=== PATIENT | female | born 1995 | race Hispanic/Latino ===

== ENCOUNTER → 2023-05-20 17:13 | Outpatient (REF) | payer OTHER, SELFPAY | LOC: PNTC 17:13 | PROVIDERS: ATTENDING PHYSICIAN Obstetrics & Gynecology | DX: Q07.00 Arnold-Chiari syndrome without spina bifida or hydrocephalus (principal); O99.210 Obesity complicating pregnancy, unspecified trimester; O43.199 Other malformation of placenta, unspecified trimester | CPT/HCPCS: 76816 ==

== ENCOUNTER → 2023-06-03 11:38 | Outpatient (REF) | payer OTHER, SELFPAY | LOC: PNTC 11:38 | PROVIDERS: ATTENDING PHYSICIAN Obstetrics & Gynecology | DX: O36.0131 Maternal care for anti-D [Rh] antibodies, third trimester, fetus 1 (principal) | CPT/HCPCS: 36415; 86850; 86900; 86901; J2790 ==

== ENCOUNTER → 2023-06-17 07:01 | Outpatient (REF) | payer OTHER, SELFPAY | LOC: PNTC 07:01 | PROVIDERS: ATTENDING PHYSICIAN Obstetrics & Gynecology | DX: O99.210 Obesity complicating pregnancy, unspecified trimester (principal); O34.00 Maternal care for unspecified congenital malformation of uterus, unspecified trimester | CPT/HCPCS: 76816 ==

== ENCOUNTER 2023-06-24 15:12 | Observation (INO) | payer OTHER, SELFPAY ==
[2023-06-24 15:43] LABS: Hematocrit 37.9 % (37.0-47.0); Hemoglobin 12.8 g/dL (12.0-16.0); Mean Corp Hgb Conc. 33.8 g/dL (33.0-37.0); Mean Corpuscular Hgb 30.7 pg (27.0-31.0); Mean Corpuscular Volume 90.9 fL (81.0-99.0); Mean Platelet Volume 9.5 fL (7.4-10.4); Platelet Count 288 10^3/uL (130-400); Red Blood Cell Count 4.17 10^6/uL (4.20-5.40); Red Cell Dist. Width 13.8 % (11.5-14.5); White Blood Cell Count 9.1 10^3/uL (4.8-10.8)
[2023-06-24 16:01] LABS: ALT (SGPT) 19 U/L (0-35); AST (SGOT) 23 U/L (14-36); Albumin 3.5 g/dl (3.5-5.0); Alkaline Phosphatase 77 U/L (38-126); Blood Urea Nitrogen 5 mg/dl (7-17); Carbon Dioxide 21 mmol/L (22-30); Chloride 104 mmol/L (98-107); Glucose 100 mg/dl (70-99); Potassium 3.7 mmol/L (3.5-5.1); Sodium 133 mmol/L (135-145); Total Bilirubin 0.2 mg/dl (0.2-1.3); Total Protein 6.7 g/dl (6.3-8.2); eGFR > 60.00
[2023-06-24 16:12] LABS: Urine Albumin Negative (Neg - Trace); Urine Bilirubin Negative (Negative); Urine Character Clear (Clear); Urine Color Yellow; Urine Glucose Negative (Negative); Urine Ketone Negative (Negative); Urine Leukocyte Negative (Negative); Urine Nitrite Negative (Negative); Urine Occult Blood Negative (Negative); Urine Urobilinogen Negative (Neg - 1+)
[2023-06-24 16:39] VITALS: BP 131/81; BMI 34.8
[2023-06-24 16:39] LABS: Protein/creatinine Ratio 0.3; Urine Protein 12 mg/dl
== END 2023-06-24 17:15 | disposition home or self-care (01) ==
LOC: PNTC-IN 15:12
PROVIDERS: ADMITTING PHYSICIAN Obstetrics & Gynecology
DX: O13.3 Gestational [pregnancy-induced] hypertension without significant proteinuria, third trimester (principal); O99.343 Other mental disorders complicating pregnancy, third trimester; F32.A Depression, unspecified; M79.7 Fibromyalgia; F41.9 Anxiety disorder, unspecified; Z3A.31 31 weeks gestation of pregnancy; Z83.3 Family history of diabetes mellitus; Z82.49 Family history of ischemic heart disease and other diseases of the circulatory system; Z91.013 Allergy to seafood
CPT/HCPCS: 80053; 81003; 82570; 84156; 85027; G0378

== ENCOUNTER 2023-07-05 16:37 | Observation (INO) | payer OTHER, SELFPAY ==
[2023-07-05 16:48] VITALS: BMI 35.0
[2023-07-05 17:06] VITALS: BP 129/87
[2023-07-05 17:41] LABS: Hematocrit 38.3 % (37.0-47.0); Mean Corp Hgb Conc. 33.9 g/dL (33.0-37.0); Mean Corpuscular Hgb 30.7 pg (27.0-31.0); Mean Corpuscular Volume 90.5 fL (81.0-99.0); Mean Platelet Volume 9.5 fL (7.4-10.4); Platelet Count 307 10^3/uL (130-400); Red Blood Cell Count 4.23 10^6/uL (4.20-5.40); Red Cell Dist. Width 13.8 % (11.5-14.5); White Blood Cell Count 11.7 10^3/uL (4.8-10.8)
[2023-07-05 17:58] LABS: ALT (SGPT) 21 U/L (0-35); AST (SGOT) 22 U/L (14-36); Albumin 3.9 g/dl (3.5-5.0); Alkaline Phosphatase 89 U/L (38-126); Blood Urea Nitrogen 6 mg/dl (7-17); Calcium 9.5 mg/dl (8.4-10.2); Carbon Dioxide 22 mmol/L (22-30); Chloride 101 mmol/L (98-107); Estimated Creatinine Clearance > 125 ml/min; Glucose 83 mg/dl (70-99); Potassium 4.2 mmol/L (3.5-5.1); Sodium 133 mmol/L (135-145); Total Bilirubin 0.1 mg/dl (0.2-1.3); Total Protein 7.2 g/dl (6.3-8.2); eGFR > 60.00
[2023-07-05] MEDS: CELESTONE SOLUSPAN 2 MG IM (18:16)
[2023-07-05 18:22] LABS: Protein/creatinine Ratio 0.7; Urine Protein 14 mg/dl
== END 2023-07-05 18:45 | disposition home or self-care (01) ==
LOC: LDRP 16:37
PROVIDERS: ADMITTING PHYSICIAN Obstetrics & Gynecology; FAMILY PHYSICIAN Internal Medicine
DX: O14.03 Mild to moderate pre-eclampsia, third trimester (principal); G93.5 Compression of brain; Z3A.33 33 weeks gestation of pregnancy; Z91.013 Allergy to seafood; Z82.49 Family history of ischemic heart disease and other diseases of the circulatory system
CPT/HCPCS: 96372; J0702; 80053; 82570; 84156; 85027; G0378

== ENCOUNTER 2023-07-06 17:35 | Observation (INO) | payer OTHER, SELFPAY ==
[2023-07-06 17:41] VITALS: BP 134/73; BMI 34.8
[2023-07-06] MEDS: CELESTONE SOLUSPAN 2 MG IM (18:07)
== END 2023-07-06 18:21 | disposition home or self-care (01) ==
LOC: LDRP 17:35
PROVIDERS: ADMITTING PHYSICIAN Obstetrics & Gynecology
DX: O14.03 Mild to moderate pre-eclampsia, third trimester (principal); Z3A.33 33 weeks gestation of pregnancy
CPT/HCPCS: 96372; J0702; G0378

== ENCOUNTER → 2023-07-09 07:05 | Outpatient (REF) | payer OTHER, SELFPAY | LOC: PNTC 07:05 | PROVIDERS: ATTENDING PHYSICIAN Obstetrics & Gynecology | DX: O99.210 Obesity complicating pregnancy, unspecified trimester (principal); O43.199 Other malformation of placenta, unspecified trimester; Q07.00 Arnold-Chiari syndrome without spina bifida or hydrocephalus | CPT/HCPCS: 59025; 76815 ==

== ENCOUNTER → 2023-07-15 06:59 | Outpatient (REF) | payer OTHER, SELFPAY | LOC: PNTC 06:59 | PROVIDERS: ATTENDING PHYSICIAN Obstetrics & Gynecology | DX: O43.123 Velamentous insertion of umbilical cord, third trimester (principal) | CPT/HCPCS: 59025; 76816 ==

== ENCOUNTER 2023-07-21 15:55 | Inpatient (IN) | payer OTHER, SELFPAY ==
[2023-07-21 16:37] VITALS: BP 130/90; BMI 35.0
[2023-07-21 16:59] LABS: Hematocrit 40.5 % (37.0-47.0); Hemoglobin 13.5 g/dL (12.0-16.0); Mean Corp Hgb Conc. 33.3 g/dL (33.0-37.0); Mean Corpuscular Hgb 30.9 pg (27.0-31.0); Mean Corpuscular Volume 92.7 fL (81.0-99.0); Mean Platelet Volume 10.1 fL (7.4-10.4); Platelet Count 259 10^3/uL (130-400); Red Blood Cell Count 4.37 10^6/uL (4.20-5.40); Red Cell Dist. Width 13.9 % (11.5-14.5); White Blood Cell Count 9.9 10^3/uL (4.8-10.8)
[2023-07-21 17:01] LABS: Urine Albumin Negative (Neg - Trace); Urine Bilirubin Negative (Negative); Urine Character Clear (Clear); Urine Color Yellow; Urine Glucose Negative (Negative); Urine Ketone Negative (Negative); Urine Leukocyte Negative (Negative); Urine Nitrite Negative (Negative); Urine Occult Blood Negative (Negative); Urine Urobilinogen Negative (Neg - 1+); Urine pH 6.5 (5.0-9.0)
[2023-07-21 17:15] LABS: ALT (SGPT) 23 U/L (0-35); AST (SGOT) 24 U/L (14-36); Albumin 3.7 g/dl (3.5-5.0); Alkaline Phosphatase 113 U/L (38-126); Blood Urea Nitrogen 8 mg/dl (7-17); Carbon Dioxide 20 mmol/L (22-30); Chloride 106 mmol/L (98-107); Estimated Creatinine Clearance > 125 ml/min; Glucose 85 mg/dl (70-99); Potassium 4.2 mmol/L (3.5-5.1); Sodium 132 mmol/L (135-145); Total Bilirubin 0.2 mg/dl (0.2-1.3); eGFR > 60.00
[2023-07-21 17:20] LABS: Protein/creatinine Ratio 0.7; Urine Protein 13 mg/dl
[2023-07-21] MEDS: CYTOTEC 50 MICROGRAM VAG (19:25)
[2023-07-21] MEDS: LR 1000 IV (19:45)
[2023-07-21] MEDS: MAGNESIUM SULFATE 100 IV (19:45)
--- NOTE | 2023-07-21 20:09 | CON.NEO ---
Consultation
-
Date/Time Consultation Requested: 07/21/2023 at 1900
Date/Time Consultation Performed: 07/21/2023 at 2000
Requesting Provider: Dr. Bajwa
Performing Provider: Dr. Cline
Reason for Consultation: Late delivery due to maternal Pre-E with severe features.
Consultation - Neonatology
Maternal Labs
Blood Type: O Negative
Antibody Screen: Negative
RPR: Nonreactive
Rubella: Immune
Hep B S Ag: Negative
Hep C: Negative
HIV: Nonreactive
Group B Strep: Negative
Chlamydia/GC: Negative
Consult
Points discussed at consult with mom regarding late infant at 35 weeks: Maternal history complicated by Chiari malformation Type 1, obesity, anxiety/depression - no meds, and previous gHTN. She recevied betamethasone on 07/04-07/05 for
concern of evolving Pre-E. She is expecting a girl.
- Management at delivery including the possibility of CPAP/intubation/surfactant discussed
- Respiratory: RDS possibility with possibility of worsening for 24-48 hrs, management including CPAP/surfactant/ventilator support may be required
- Nutrition: Hypoglycemia, need for IV fluids, gradual feed advance, Gavage feeding, importance of colostrum feeding, initiation of expression of colostrum within 3-4 hours, availability of donor milk, safety fo donor milk etc. were discussed. Mom
previously pumped and over-produced with her 4 year old son and he never latched well. Use of donor BM discussed, consent left at mom's bedside as she will decide donor vs formula if needed. Mom states she has actually been producing drops of
colostrum already but has not wanted to express much due to fear of it possibly affecting early labor and has not stored any.
- [facility]: possibility of PDA not discussed in detail at this time
- Jaundice possibility and need for phototherapy discussed
- Family Centered Care: Discussed FCC with emphasis on parental participation during sign off and during management rounds and is encouraged. Availability of chip eyes camera also discussed
- COVID-19: Visitation policy, modifications related to COVID-19, ever changing guidelines were discussed
Mom was given the opportunity to ask questions throughout and open invitation to call if any questions come as they absorb all the information given so far.
Face to Face Time
Total Edfl-vx-Nyoq Time (in Minutes): 45
Attending Sample Maker: Amaya Cline MD
[2023-07-21] MEDS: MAGNESIUM SULFATE 40 GRAM 1000 IV (20:12)
[2023-07-22] MEDS: TYLENOL 650 MG PO (07:11)
[2023-07-22] MEDS: PITOCIN 30 UNITS/NSS 500 ML IV (07:39)
[2023-07-22] MEDS: FENTANYL/BUPIVACAINE 100 EPIDURAL ×2 (10:27→18:26)
[2023-07-22] MEDS: SUBLIMAZE 100 MCG EPIDURAL (10:27)
[2023-07-22] MEDS: LR 1000 IV (10:28)
[2023-07-22] MEDS: TYLENOL 1000 MG PO (14:01)
[2023-07-22 14:03] LABS: Magnesium 5.5 mg/dl (1.6-2.3)
[2023-07-22] MEDS: MAGNESIUM SULFATE 40 GRAM 1000 IV (15:55)
[2023-07-23] MEDS: MOTRIN 600 MG PO ×2 (03:48→20:02)
[2023-07-23 07:46] LABS: Hematocrit 37.2 % (37.0-47.0); Hemoglobin 12.4 g/dL (12.0-16.0)
[2023-07-23] MEDS: LR 1000 IV (08:34)
[2023-07-23 11:11] LABS: Hematocrit 35.9 % (37.0-47.0); Hemoglobin 12.2 g/dL (12.0-16.0); Mean Corpuscular Volume 91.3 fL (81.0-99.0); Mean Platelet Volume 9.7 fL (7.4-10.4); Platelet Count 225 10^3/uL (130-400); Red Blood Cell Count 3.93 10^6/uL (4.20-5.40); White Blood Cell Count 10.5 10^3/uL (4.8-10.8)
[2023-07-23 11:27] LABS: ALT (SGPT) 21 U/L (0-35); AST (SGOT) 30 U/L (14-36); Albumin 2.8 g/dl (3.5-5.0); Alkaline Phosphatase 90 U/L (38-126); Blood Urea Nitrogen 4 mg/dl (7-17); Carbon Dioxide 23 mmol/L (22-30); Chloride 108 mmol/L (98-107); Estimated Creatinine Clearance > 125 ml/min; Glucose 83 mg/dl (70-99); Magnesium 3.5 mg/dl (1.6-2.3); Potassium 3.8 mmol/L (3.5-5.1); Sodium 134 mmol/L (135-145); Total Bilirubin 0.4 mg/dl (0.2-1.3); Total Protein 5.6 g/dl (6.3-8.2); eGFR > 60.00
[2023-07-23 15:44] LABS: Magnesium 4.1 mg/dl (1.6-2.3)
[2023-07-23 16:40] LABS: Syphilis/T. pallidum Ab Reflex Negative (Negative)
[2023-07-23] MEDS: HYPERRHO S-D 1500 UNIT IM (18:48)
[2023-07-23 19:16] LABS: Magnesium 4.6 mg/dl (1.6-2.3)
[2023-07-24] MEDS: MOTRIN 600 MG PO ×2 (05:18→12:13)
== END 2023-07-24 17:39 | disposition home or self-care (01) | DRG 807 ==
LOC: LDRP 15:55
PROVIDERS: Obstetrics & Gynecology; ADMITTING PHYSICIAN Obstetrics & Gynecology
PROC: 10E0XZZ Delivery of Products of Conception, External Approach (ICD-10-PCS; 2023-07-22)
DX: O14.14 Severe pre-eclampsia complicating childbirth (principal); Z37.0 Single live birth; Z3A.35 35 weeks gestation of pregnancy; O62.3 Precipitate labor; O71.82 Other specified trauma to perineum and vulva; O60.14X0 Preterm labor third trimester with preterm delivery third trimester, not applicable or unspecified; O69.89X0 Labor and delivery complicated by other cord complications, not applicable or unspecified
CPT/HCPCS: 88307; 80053; 81003; 82570; 83735; 84156; 85014; 85018; 85027; 85461; 86780; 86850; 86870; 86900; 86901; J2790

== ENCOUNTER → 2024-07-22 07:38 | Outpatient (REF) | payer OTHER, SELFPAY | LOC: WDC 07:38 | PROVIDERS: ATTENDING PHYSICIAN Advanced Practice Midwife; FAMILY PHYSICIAN Internal Medicine | DX: N63.10 Unspecified lump in the right breast, unspecified quadrant (principal); N63.11 Unspecified lump in the right breast, upper outer quadrant | CPT/HCPCS: 76642 ==

== ENCOUNTER → 2024-10-02 08:33 | Outpatient (REF) | payer OTHER, SELFPAY | LOC: HWRAD 08:33 | PROVIDERS: ATTENDING PHYSICIAN Obstetrics & Gynecology; FAMILY PHYSICIAN Internal Medicine | DX: N93.9 Abnormal uterine and vaginal bleeding, unspecified (principal) | CPT/HCPCS: 76830; 76856 ==